=== PATIENT | female | born 1985 | race Hispanic/Latino ===

== ENCOUNTER 2021-12-22 09:17 | Emergency (ER) | payer MEDICAID ==
[2021-12-22] MEDS ORDERED: NALOXONE 0.4 MG/1 ML INJ IV ONE (12:06)
[2021-12-22] MEDS ORDERED: SODIUM CHLORIDE 0.9% 1000 ML 1,000 ML IV ONE (12:06)
[2021-12-22 13:12] LABS: Bilirubin,Urine NEG (Negative); Blood,Urine NEG (Negative); Color,Urine Yellow (Yellow); Urobilinogen,Urine < 2.0 mg/dL (<2.0)
[2021-12-22 13:21] LABS: Amphetamine Screen,Urine Negative; Benzodiazepines Screen,Urine Negative; Cannabinoid Screen,Urine Negative; Cocaine Screen,Urine Negative; Methadone Screen,Urine Negative; Opiate Screen,Urine Negative
[2021-12-22 13:27] LABS: Bacteria,Urine 1+ /HPF (Negative); Mucus,Urine FEW /HPF
[2021-12-22 13:36] LABS: Basophils # (Auto) 0.1 K/mm3 (0.0-0.1); Basophils % (Auto) 0.5 % (0.0-1.8); Eosinophils % (Auto) 0.3 % (0.0-4.3); Hematocrit 33.8 % (30.3-42.9); Lymphocytes # (Auto) 1.8 K/mm3 (1.2-5.4); Lymphocytes % (Auto) 16.1 % (13.4-35.0); Mean Corpuscular HGB Conc 32 % (30-34); Mean Corpuscular Volume 112 fl (79-97); Monocytes # (Auto) 0.4 K/mm3 (0.0-0.8); Monocytes % (Auto) 3.7 % (0.0-7.3); Platelet Count 166 K/mm3 (140-440); Red Blood Count 3.03 M/mm3 (3.65-5.03); Red Cell Distribution Width 16.1 % (13.2-15.2)
[2021-12-22 14:03] LABS: Alanine Aminotransferase 40 units/L (7-56); Blood Urea Nitrogen 12 mg/dL (7-17); Calcium 8.1 mg/dL (8.4-10.2); Hemolysis Index 2
[2021-12-22 14:07] LABS: BUN/Creatinine Ratio 30
--- NOTE | 2021-12-22 16:51 | Cat Scan Report ---
CT head/brain wo con INDICATION / CLINICAL INFORMATION: 36 years Female; Seizure. TECHNIQUE: Routine CT head without contrast. All CT scans at this location are performed using CT dos e reduction for ALARA by means of automated exposure control. COMPARISON: None. FINDINGS: BRAIN / INTRACRANIAL CONTENTS: The motion degrades the image quality. However, there is a small focus of calcification within the right basal ganglia. The brain otherwise appears to demonstrate appropri ate attenuation. There is a developmental cavum septum vergae. The ventricular system is otherwise un remarkable. There is no clear CT evidence of acute intracranial hemorrhage or significant mass effect . ORBITS: No significant abnormality of visualized orbits. SINUSES / MASTOIDS: No significant abnormality in the visualized paranasal sinuses or mastoid air batsheva ls. CRANIOCERVICAL JUNCTION: No significant abnormality. ADDITIONAL FINDINGS: None. IMPRESSION: 1. There is no clear CT evidence of acute intracranial process. Signer Name: Adi Cantu MD Signed: 12/22/2021 4:46 PM Workstation Name: [id number]
--- NOTE | 2021-12-22 18:12 | Emergency Department Report ---
ED Seizure HPI - General Chief Complaint: Seizure Stated Complaint: AMS Time Seen by Provider: 12/22/21 11:58 Source: patient Mode of arrival: Ambulatory Limitations: No Limitations - History of Present Illness Initial Comments: seizure; [place]. Has been out of [facility] x 2 weeks. Homeless MD Complaint: seizure -: days(s) Description of Episode: loss of consciousness, tonic-clonic movement Witnessed:: No Trauma: No Place: street/outdoors Possible Precipitating Event: none Associated Symptoms: denies: denies other symptoms, chest pain, confusion, cough - Related Data Allergies Allergy/AdvReac Type Severity Reaction Status Date / Time divalproex sodium Allergy Unknown Verified 12/22/21 13:19 [From [facility]] ED Review of Systems ROS: Stated complaint: AMS Other details as noted in HPI Constitutional: denies: chills, fever Eyes: denies: eye pain, eye discharge, vision change ENT: denies: ear pain, throat pain Respiratory: denies: cough, shortness of breath, wheezing Cardiovascular: denies: chest pain, palpitations Endocrine: no symptoms reported Gastrointestinal: denies: abdominal pain, nausea, diarrhea Genitourinary: denies: urgency, dysuria, discharge Musculoskeletal: denies: back pain, joint swelling, arthralgia Skin: denies: rash, lesions Neurological: denies: headache, weakness, paresthesias Psychiatric: denies: anxiety, depression Hematological/Lymphatic: denies: easy bleeding, easy bruising ED Past Medical Hx - Past Medical History Previous Medical History?: No Hx Hypertension: No - Social History Smoking Status: Former Smoker ED Physical Exam - General Limitations: No Limitations General appearance: appears intoxicated, other (sleepy arousable ) - Head Head exam: Present: atraumatic, normocephalic - Eye Eye exam: Present: normal appearance - ENT ENT exam: Present: mucous membranes moist - Neck Neck exam: Present: normal inspection - Respiratory Respiratory exam: Present: normal lung sounds bilaterally. Absent: respiratory distress - Cardiovascular Cardiovascular Exam: Present: regular rate, normal rhythm. Absent: systolic murmur, diastolic murmur, rubs, gallop - GI/Abdominal GI/Abdominal exam: Present: soft, normal bowel sounds - Extremities Exam Extremities exam: Present: normal inspection - Back Exam Back exam: Present: normal inspection - Neurological Exam Neurological exam: Present: alert - Psychiatric Psychiatric exam: Present: normal affect, suicidal ideation - Skin Skin exam: Present: warm, dry, intact, normal color. Absent: rash ED Course Vital Signs 12/22/21 12/22/21 12/22/21 09:21 09:34 09:46 Temperature 98.1 F Pulse Rate 105 H 112 H 102 H Respiratory 18 19 16 Rate Blood Pressure 122/88 Blood Pressure 118/78 [Left] O2 Sat by Pulse 100 99 99 Oximetry 12/22/21 12/22/21 12/22/21 10:00 10:16 10:30 Temperature Pulse Rate 107 H 94 H 97 H Respiratory 16 15 16 Rate Blood Pressure 105/72 105/72 101/68 Blood Pressure [Left] O2 Sat by Pulse 99 98 98 Oximetry 12/22/21 12/22/21 12/22/21 10:46 11:00 11:16 Temperature Pulse Rate 94 H 111 H 104 H Respiratory 15 12 15 Rate Blood Pressure 101/68 102/73 101/68 Blood Pressure [Left] O2 Sat by Pulse 97 97 95 Oximetry 12/22/21 12/22/21 12/22/21 11:30 11:46 12:00 Temperature Pulse Rate 97 H 96 H 97 H Respiratory 14 15 14 Rate Blood Pressure 103/70 103/70 98/57 Blood Pressure [Left] O2 Sat by Pulse 93 93 93 Oximetry 12/22/21 12/22/21 12/22/21 12:16 12:30 12:46 Temperature Pulse Rate 117 H 112 H 101 H Respiratory 15 17 14 Rate Blood Pressure 98/57 111/74 111/74 Blood Pressure [Left] O2 Sat by Pulse 97 97 93 Oximetry 12/22/21 12/22/21 12/22/21 13:00 13:16 13:30 Temperature Pulse Rate 97 H 96 H 99 H Respiratory 15 14 13 Rate Blood Pressure 97/68 98/57 88/62 Blood Pressure [Left] O2 Sat by Pulse 94 94 95 Oximetry 12/22/21 12/22/21 12/22/21 13:46 14:00 14:16 Temperature Pulse Rate 101 H 116 H 108 H Respiratory 13 18 14 Rate Blood Pressure 88/62 94/62 94/62 Blood Pressure [Left] O2 Sat by Pulse 92 94 97 Oximetry 12/22/21 12/22/21 12/22/21 14:32 14:46 15:00 Temperature Pulse Rate 104 H 99 H 100 H Respiratory 15 13 14 Rate Blood Pressure 94/62 104/73 111/79 Blood Pressure [Left] O2 Sat by Pulse 100 100 Oximetry 12/22/21 12/22/21 12/22/21 15:16 15:30 15:46 Temperature Pulse Rate 110 H 101 H 108 H Respiratory 16 12 16 Rate Blood Pressure 94/62 114/80 114/80 Blood Pressure [Left] O2 Sat by Pulse 100 97 95 Oximetry 12/22/21 12/22/21 12/22/21 16:00 16:16 16:30 Temperature Pulse Rate 102 H 140 H 112 H Respiratory 15 18 18 Rate Blood Pressure 119/84 119/84 116/77 Blood Pressure [Left] O2 Sat by Pulse 96 Oximetry ED Medical Decision Making - Lab Data Result diagrams: 12/22/21 12:24 12/22/21 12:24 Critical care attestation.: If time is entered above; I have spent that time in minutes in the direct care of this critically ill patient, excluding procedure time. ED Disposition Clinical Impression: Seizure, Alcohol abuse Disposition: 01 HOME / SELF CARE / HOMELESS Is pt being admited?: No Does the pt Need Aspirin: No Condition: Stable
[2021-12-22 18:48] VITALS: BP 92/57
--- NOTE | 2021-12-23 11:11 | Electrocardiograph Report ---
[facility] Test Date: 2021-12-22 Test Time: 12:42:07 Pat Name: ALLI EMERSON Department: Room: Gender: F Vice [employer]: KIMBERLY : 1985 Requested By: SLIME STAPLETON Order Number: [id number] Reading MD: Cale Forman Measurements Intervals [place] Rate: 101 P: 57 MA: 137 QRS: 64 QRSD: 68 T: 43 QT: 360 QTc: 466 Interpretive Statements Sinus tachycardia No previous ECG available for comparison Electronically Signed On 12-23-2021 11:11:15 EDT by Cale Forman
== END 2021-12-22 18:48 | disposition home or self-care (01) ==
LOC: ED 09:17
DX: R56.9 Unspecified convulsions (principal); F10.10 Alcohol abuse, uncomplicated; Z59.00 Homelessness unspecified; Z87.891 Personal history of nicotine dependence
CPT/HCPCS: 36415; 70450; 80053; 80164; 80307; 81001; 85025; 87076; 87086; 87186; 93005; 96361; 96374; 99284; J2310; J7030; 80320; G0480